=== PATIENT | female | born 1980 | race Caucasian/White ===

== ENCOUNTER 2017-04-22 00:59 | Inpatient (IN) | payer OTHER ==
[2017-04-22] VITALS (10 sets, daily range): BP systolic 104–140; BP diastolic 71–99; PULSE 83–106; RESP 6–28; O2SAT 98–100
[~2017-04-22] VITALS: Ht 160 cm; Wt 48.9 kg
[2017-04-22] MEDS ORDERED: Alum-Mag Hydrox-Simeth 30 mL Suspension PO PRN (02:20)
[2017-04-22] MEDS ORDERED: Senna-Docusate 8.6-50 mg Tablet PO PRN (02:20)
[2017-04-22] MEDS ORDERED: Polyethylene Glycol (PEG) 17 Gm Powder PO PRN (02:20)
[2017-04-22] MEDS ORDERED: HYDROmorphone PCA 0.2 mg/mL 30 mL Inj IV PRN (02:20)
--- NOTE | 2017-04-22 02:43 | PCM.HPMED ---
Subjective Date of Service Apr 22, 2017 Primary Provider: Admitting Physician: Jenifer Diaz DO Primary Care Physician: Dion Attending Physician: Jenifer Diaz DO Chief Complaint: abdominal pain History of Present Illness: Patient is a 36-year-old female with a medical history significant for hx polysubstance abuse, alcohol use disorder presents with significant abdominal pain. Per patient, abdominal pain started 2 days ago with associated nausea, vomiting , fevers, and chills. Pain is described as "bandlike" consistent, radiating to the right shoulder, sometimes to the left shoulders as well. Patient has little by mouth intake for the past 2 days. Though, patient admits to continued endorsing hard liquor until last night when abdominal pain became unbearable and thus activated EMS. Patient reports drinking up to a pint of vodka daily. Patient was recently discharge from methadone clinic last October, after 10 years of treatment and being clean. Patient then, decided to take up drinking thereafter. Patient denies any hematemesis or melena. Patient is currently not on any prescribed medications, no family histories of hypercholesterolemia. While at the ED at [facility], patient received 4 L of fluid in addition to pain medication. Patient was then transferred due to limited ICU beds. Labs at [place] CBC: WBC 15.9, Hgb 13.6, HCT 41.2, MCV 105, plt 178, neutrophil 88.5% CMP: Sodium 140, potassium 3.8, chloride 97, bicarbonate 4, P1 12, creatinine 0.9, glucose 70 Lipase 1014 Triglyceride 270 Ethyl alcohol 16 (normal 3-10) Serum acetone positive Urinary ketone 3+ Bilirubin 0.9, AST/FTY299/53, alkaline phosphatase 84, INR 1.1 Calcium 8.3, albumin 3.9 Magnesium 1.6 Troponin I less than 0.05 Urinary test negative Urine drug screen tested positive for cannabinoid only Initial ABG pH 7.12, PCO2 12.6, PaO2 117, estimated bicarbonate 4.1 Review of Systems: A comprehensive review of systems was conducted with the patient and found to be negative except as above in the History of Present Illness. 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 PERRLA, EOMI, Anicteric sclerae, moist conjunctivae. Neck: No JVD, No bruits. No lymphadenopathy or thyromegaly. Cardiovascular: Tachycardic, Regular rhythm with no murmurs, rubs, or gallops appreciated Pulmonary: b/l air sound with no crackles, wheezes, or rhonchi. no use of accessory muscles. Abdomen: +Bowel sound, Soft, tender around the epigastric, no rebound tenderness , no signs of retroperitoneal bleeding Extremities: No clubbing or cyanosis, no lymphedema, no b/l lower leg edema Skin: Normal temperature, turgor, and texture; no rash. No visualized skin ulcer. Neurological: CN II-VII grossly intact, moving equally on all 4 extremities Psychiatric: Normal mood and affect. AOx3 Lymph: no cervical or supraclavicular lymphadenopathy MSK: no joint erythema / edema, normal ROM Lab and Diagnostics X-Rays, CTs and MRIs Abdominal CT impression at [facility] 04/21/2017 1. Severe hepatics steatosis 2. Small hiatal hernia 3. Thickening of the entire colon probably due to decompression. Colitis is less likely. Chest x-ray impression at [facility] 04/21/2017 1. No acute changes 2. 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 Acute pancreatitis, present on admission, active - has classic presentation abdominal pain with lipase in the thousand - likely secondary to heavy EtOH abuse. BISAP score =1, low risk mortality. - "Pancreas rest", NPO for now. - TIRE CENTER MANAGER hydromorphone, antinausea medication when necessary - Cont NS 150cc/hr. Titrated to urine output greater than 0.5 mL/kg/hr. - Consult GI Dr. Edwards, please call to confirm if patient needs to be evaluated. EtOH intoxication, present on admission, active - Drinks about 1L every 2 days - Last drink, late evening 04/21/2017 - Alcohol withdraw protocol - Valium 5-10mg Q5-10min with CIWA score >10 - Supplement IV thiamine, start folate and vitamin B12 when patient can tolerate PO - Consult case management Anion gap metabolic acidosis, present on admission, active - Likely due to a combination of discontinuing alcohol ingestion and lactic acidosis - No secondary acid base disorder given Delta/delta =1 - Continue to monitor, hydrate as above Leukocytosis, present on admission, active - Likely reactive - Low threshold to start antibiotics for likely aspiration pneumonia - Monitor Transaminitis, present on admission, active - AST/ALT pattern classic for hepatotoxicity due to EtOH - Confirmatory, significant steatosis shown on CT abdomen - Order HIV and hepatitis panel to rule out other causes Dyspepsia, present on admission, active - Small hiatal hernia demonstrated on CT abdomen - Famotidine 20 mg twice a day Hypomagnesemia, present on admission, active - Replenish per protocol DVT prophylaxis: Lovenox CODE STATUS full code Patient Status: Patient is admitted under inpatient status with expected length of stay GREATER than 2 midnights due to severity of presenting symptoms, risk of adverse event, and complexity of treatment plan. GI Prophylaxis: H2 salena VTE Prophylaxis: Sub-Q Enoxaparin Resuscitation Status: CPR: Attempt Resuscitation Attending Statement The patient was seen and examined together with house staff on 04/22/2017 and I agree with the history, exam and plan as outlined in the note above. Frederick Tracey DO Apr 22, 2017 02:43 Jenifer Diaz DO Apr 22, 2017 04:36
[2017-04-22 02:48] LABS: BASOPHILS % (AUTO) 0 % (0-3); EOSINOPHILS % (AUTO) 0 % (0-5); MONOCYTES % (AUTO) 8.8 % (4-12); Mean Corpuscular Hemoglobin 34.5 pg (27.0-35.0); NEUTROPHILS % (AUTO) 60.9 % (40-74); Platelet Count 94 bil/L (150-400)
[2017-04-22] MEDS: Ondansetron 2 mg/mL 2 mL Inj IVPUSH PRN (03:02)
[2017-04-22] MEDS: 0.9% Sodium Chloride 1,000 ML IV SCH ×4 (03:03→23:39)
--- NOTE | 2017-04-22 03:21 | ABG ---
DateTimeAnalyzed 03:12:53 -_ pH ____7.392 - 7.350 7.450 pCO2 ___23.0__ -mmHg 35.0 45.0 pO2 ___96.0__ -mmHg 69.0 116 HCO3- ___14.0__ -mmol/L 22.0 26.0 ABE ___-9.9__ -mmol/L tHb ___11.0__ -g/dL O2Hb ___96.5__ -% COHb ____1.2__ -% 1.5 MetHb ____0.6__ -% sO2 ___98.3__ -% FIO2 ___21.0__ -% Drawn By blf - Date/Time Notified____ 03:20:00 -_ Liter_Flow ___30.00_ -L/min Oxygen Device 1 _ROOM AIR - Notified By blf - Notified Whom ___DR. SPANN - K+ ____3.9__ -mmol/L tO2 ___15.0__ -Vol% Robbie test _Positive -
[2017-04-22 03:23] LABS: Magnesium 1.1 mg/dL (1.6-2.6)
[2017-04-22] MEDS ORDERED: Mag Sulf 4 Gm/100 mL IV Premix (Mag < 1.6 & Creat < 2) IV ONE (03:50)
--- NOTE | 2017-04-22 05:59 | NUR ---
Admit / pain Patient admitted to room 2016 just before 0200, arrived as a transfer from [facility]. Patient oriented to room and call light. Denies having any home medications. Belongings waiver signed. Plan of care for the night discussed with the patient. On admit patient is complaining of abdominal pain, rating it as 8/10, describing it as burning, making her feel short of breath, and radiating to her back. Patient describes pain as increasing with light palpation. MD aware of quantity, quality, and location of pain. ROUGE SIFTER ordered and initiated, patient able to sleep after initial bolus dose is administered.
--- NOTE | 2017-04-22 07:59 | PCM.CHPMED ---
Subjective Date of Service: Apr 22, 2017 Provider requesting consult: Frederick Tracey DO Primary Physician: Admitting Physician: Miah Fishman MD Primary Care Physician: Nopcp Attending Physician: Miah Fishman MD Admit Status: Direct Admit ([facility]) Chief Complaint: Chief Complaint: abdominal pain History of Present Illness: GASTROENTEROLOGY CONSULTATION Patient is a 36 yo female with history of polysubstance abuse with 10 years of methadone treatment, 3 sections and a laparotomy. She had sudden onset abdominal pain that has worsened over the last 2 days until it got to the point that she couldn't walk it hurt so bad. She describes the pain as sharp at times and a major pressure in her epigastric area. Pain radiates to back. It is currently rated at 8/10, 10/10 at worst. She has had some nausea and vomitting but no hematemesis or melena. She has had some fever and chills. She is constipated without diarrhea. She does not take medications at home. She has been drinking"not much" recently, less than a pint of vodka daily. Review of Systems: A comprehensive review of systems was conducted with the patient and found to be negative except as above in the History of Present Illness. PMH Past Medical History Polysubstance abuse currently only alcohol and marijuana 10 year history of methadone use completed in October 2016 Urinary calculi 2 History of macrocytic anemia Surgical History section 3 Tonsillectomy Laparotomy Allergies: Coded Allergies: amoxicillin (Verified Allergy, Unknown, 04/22/17) Hives Family History Family History Father with colon cancer, of myocardial infarction No family history of inflammatory bowel disease or celiac disease and first or second-degree relatives Social History Hx Alcohol Use: YesAlcoholic Drinks Per Day: 'half pint a day'Hx Substance Use : Yes Smoking Status: Current Every Day Smoker Living Arrangement: with Family Exam Vital Signs Vital Sign - Last Date Time Temp Pulse Resp B/P Pulse Ox O2 Delivery O2 Flow Rate FiO2 04/22/17 06:15 106 04/22/17 02:04 37.3 28 140/86 100 Room Air Intake and Output 04/21/17 04/21/17 04/22/17 Cumulative From/Thru 15:00 23:00 07:00 04/22/17 02:32 - 04/22/17 06:17 Intake Total 429 ml 429 ml Balance 429 ml 429 ml Intake IV Total 429 ml 429 ml General: Alert, Oriented X3, Cooperative, No Acute Distress Head: Normal Mouth: Mucous Membr Moist/Miranda Neck: Supple Chest & Lungs: Auscultation (Normal), Other (Normal air movement) Cardiovascular: Regular Rate/Rhythm, No Murmurs/Rubs/Gallops Abdomen: Tender (epigastric), Non-distended, No masses, No hepatosplenomegaly, Normoactive bowel tones Neurological: Grossly Neurologically Intact Lab and Diagnostics Labs Lipase 1014 at [facility], decreased to 224 on arrival. Lactic acid trended down to 0.9 this morning. Hemoglobin 11.1, hematocrit 33.8, MCV 105.0, platelets 94 Result Diagram: 04/22/1723904/22/17239 Assessment & Plan Assessment 36-year-old female with past medical history of polysubstance abuse and recent alcohol use presents with pancreatitis. She has elevated lipase; initially in the thousands now downtrending with cessation of alcohol use, administration of IV fluids, and nothing by mouth status. This is most likely a case of alcoholic pancreatitis however other causes should be considered including autoimmune, or gallstone pancreatitis. Patient nontender in her right upper quadrant with a non-thickened gallbladder and no evidence of stones or sludge on ultrasound making gallstone pancreatitis less likely. Patient is stable, though her pain is significant she is continuing to improve. Due to her daily alcohol consumption erosive esophagitis or gastric ulcers should be considered if pain persists once pancreatitis has resolved. Recommendations: 1. Intravenous fluids, nothing by mouth status 2. Abdominal ultrasound 3. Evaluate for autoimmune pancreatitis including JOSE L and IgG4 Thank you for this interesting consult and we will continue to follow while patient remains in the hospital. Problems: Pain Evaluation: Adequate Pain Control GI Prophylaxis: H2 salena VTE Prophylaxis: Sub-Q Enoxaparin Resuscitation Status: CPR: Attempt Resuscitation Attending Statement agree with assessment and plan above. 36 year old female admitted with acute pancreatitis by definition most likely due to etoh ingestion. will r/o other causes. agree with plan above. copies to: Nima Edwards MD, Erika R DO Apr 22, 2017 07:59 Nima Edwards MD Apr 22, 2017 21:22
[2017-04-22] MEDS ORDERED: Famotidine Inj 20 MG in IV Premix 1 EACH IV SCH (08:30)
[2017-04-22] MEDS: Multivit-Miner-Folic Acid-Iron Tablet PO SCH (08:30)
[2017-04-22] MEDS: Thiamine Inj 200 MG in Dextrose 5% 50 ML IV SCH (09:14)
--- NOTE | 2017-04-22 13:46 | NUR ---
NUTRITION ASSESSMENT: ASSESS: Pt is a 36yo F admitted for pancreatitis. Pt has history of etoh use. She is currently on a CL diet. Pt reported that she is a nibbler at home and doesn't eat large meals. She reported that she has coffee for breakfast, will snack throughout the day on crackers and then will eat soup or a microwavable meal for dinner. She reported that she feels weak and that she has noticed some wt loss recently of ~5-10lbs over the past month (~6.5% wt loss x1 month = severe wt loss). PMHX: polysubstance abuse, etoh LABS: Reviewed. CO2 12, digital computer systems analyst .51, lactic acid 2.2, Ca 8.2, Mg 1.1, alb 3.2, lipase 224 MEDS: Reviewed. Thiamine, MVI, zofran GI: 0 BM- pt reports constipation SKIN: Arvin 14, no major issues CURRENT WTS: 48.3kg, BMI 18.9kg/m2, reported ~6.5% wt loss x1 month, IBW 52.3kg DIET PEARL DIGGER: Breakfast: coffee snacks on crackers during day Dinner: microwaveable meals DIET: CL, no PO yet EST. NEEDS: pancreatitis, malnutrition Kcals: 1210-1450kcal/day (25-30kcal/kg) Pro: 60-75g/day (1.2-1.5g/kg) NUTRITION DIAGNOSIS: 1.) Severe pro/kcal malnutrition related to alcoholism as evidence by 6.5% wt loss x1 month and PO intake of less than 75% of estimated needs for greater than 1 month, visible muscle/fat loss. NUTRITION INTERVENTION: 1.) Discussed with pt about how her current diet is not adequate to meet her kcal/pro needs. Discussed how drinking can make you feel full and leads to not eating enough food. Discussed avoiding high fat and high sugar foods and eating smaller more frequent meals because her body is not use to her eating large amounts at one time. Pt verbalized understanding of this and she reported that she has noticed wt loss and muscle loss and she does not want to lose any more wt or muscle. 2.) Provided handout on pancreatitis diet (low fat) and general healthy diet 3.) Recommend advance diet when medically appropriate. Pt is currently on CL diet. Pt agreed to try Ensure CL while on CL diet and she is willing to drink Ensure once diet is advanced past CL. MONITOR / EVAL: PO, diet advc, wt, gi, labs, POC, nutrition status. Will continue to monitor per high nutrition risk guidelines
--- NOTE | 2017-04-22 15:20 | DRSVH ---
PROCEDURE: US ABDOMEN INDICATIONS: Epigastric pain, elevated lipase TECHNIQUE: Real-time scanning was performed of the abdominal and retroperitoneal organs, with image documentatio n. COMPARISON: None. FINDINGS: Liver length: 20.09 cm Gallbladder Wall Thickness: 1.50 mm CHD: 3.60 mm CBD: 3.90 mm Spleen length: 10.13 cm Right kidney length: 10.70 cm Left kidney length: 10.81 cm Aorta(Proximal): 1.96 cm Aorta(Mid): 1.87 cm Aorta(Distal): 1.71 cm Liver: Liver is diffusely increased in echogenicity. No focal hepatic abnormalities identified. No rmal hepatic size. Gallbladder: No gallstones identified. Normal gallbladder wall. No pericholecystic fluid. Negativ e sonographic Hong sign. Biliary ducts: Intrahepatic bile ducts are non-dilated. Extrahepatic bile duct caliber is normal. Normal is 6-7 mm or less in diameter, or 10 mm or less post-cholecystectomy. Pancreas: Visualized portions of the pancreas are sonographically normal. Spleen: Spleen is normal in size and homogeneous in echotexture. Kidneys: Kidneys are normal in size and echotexture. No hydronephrosis or nephrolithiasis. No moiz d masses. Aorta: Visualized aorta is normal in caliber at less than 3 cm. Iliacs: Proximal common iliac arteries are normal in caliber at less than 2.5 cm. IVC: Intrahepatic inferior vena cava is patent. Miscellaneous: No free abdominal fluid. IMPRESSION: Increased hepatic echogenicity noted likely related to fatty infiltration of the liver b ut other sources of hepatocellular disease cannot be excluded. Recommend clinical correlation. Dictated by: Kong MAC Interpreted: Lety Marino MD on 04/22/2017 at 10:36 Approved by: Lety Marino M.D. on 04/22/2017 at 15:18
--- NOTE | 2017-04-22 16:07 | NUR ---
CIWA Pt has been sleeping most of the day. CIWA at 9. Alert and oriented x3. Clear diet ordered, giving pt heart burn. NS at 150cc/hr and Dilaudid METAL MILLING MACHINE OPERATOR with standard settings. Up to BSC with SBA, shaky on feet. Strict I&O's. Down graded to PCC at 0900
[2017-04-22] MEDS: oxyCODONE-Acetamin 5-325 mg Tablet PO PRN ×2 (18:43→23:39)
--- NOTE | 2017-04-22 19:16 | PCM.PNMED ---
Subjective Date of Service Apr 22, 2017 Subjective Overnight Events. Patient having significant pain as a new transfer from [place] , TEACHER PRIVATE ordered and initiated, allowing patient to sleep after inital bolus. She is resting in bed comfortably and in no acute distress. Patient reports her pain is 8/10, which is more tolerable. Still feels as if she is short of breath and having pain in lower chest going into the back. She also has a headache. She is not currently nauseated or vomiting. She feels as if she is able to tolerate clear liquids today. Exam Vital Signs Vital Sign - Last Date Time Temp Pulse Resp B/P Pulse Ox O2 Delivery O2 Flow Rate FiO2 04/22/17 18:27 87 04/22/17 16:48 37.1 18 117/75 98 Room Air Intake and Output 04/21/17 04/21/17 04/22/17 Cumulative From/Thru 15:00 23:00 07:00 04/22/17 02:32 - 04/22/17 06:17 Intake Total 429 ml 429 ml Balance 429 ml 429 ml Intake IV Total 429 ml 429 ml Exam General: No acute distress, malnourished, appropriately interactive HEENT: Normocephalic, Pupils equal, round, Anicteric sclerae, Cardiovascular: Regular rate and rhythm with no murmurs, rubs, or gallops appreciated Pulmonary: Clear to auscultation bilaterally with no crackles, wheezes, or rhonchi. Normal respiratory effort with no use of accessory muscles. Abdomen: Bowel tones present. Soft, Tender in all quadrants except RUQ, nondistended. No hepatosplenomegaly or masses appreciated. Extremities: No clubbing, cyanosis, edema Neurological: Cranial nerves grossly intact. Psychiatric: Normal mood and affect. Alert and oriented to person, place, and time Lab and Diagnostics DateTimeAnalyzed 03:12:53 -_ pH ____7.392 - 7.350 7.450 pCO2 ___23.0__ -mmHg 35.0 45.0 pO2 ___96.0__ -mmHg 69.0 116 HCO3- ___14.0__ -mmol/L 22.0 26.0 ABE ___-9.9__ -mmol/L tHb ___11.0__ -g/dL O2Hb ___96.5__ -% COHb ____1.2__ -% 1.5 MetHb ____0.6__ -% sO2 ___98.3__ -% FIO2 ___21.0__ -% Drawn By blf - Date/Time Notified____ 03:20:00 -_ Liter_Flow ___30.00_ -L/min Oxygen Device 1 _ROOM AIR - Notified By blf - Notified Whom ___. ZANA - K+ ____3.9__ -mmol/L tO2 ___15.0__ -Vol% Robbie test _Positive - CBC Test 04/22/17 02:40 White Blood Count 5.1th/mm3 (3.8-10.1) Red Blood Count 3.22mil/mm3 (3.90-5.20) Hemoglobin 11.1g/dL (12.0-15.6) Hematocrit 33.8% (35.0-46.0) Mean Corpuscular Volume 105.0fL (81-100) Mean Corpuscular Hemoglobin 34.5pg (27.0-35.0) Mean Corpuscular Hemoglobin Concent 32.8% (32.0-37.0) Red Cell Distribution Width 13.7% (12.3-15.4) Platelet Count 94bil/L (150-400) Neutrophils (%) (Auto) 60.9% (40-74) Lymphocytes (%) (Auto) 30.1% (14-46) Monocytes (%) (Auto) 8.8% (4-12) Eosinophils (%) (Auto) 0% (0-5) Basophils (%) (Auto) 0% (0-3) CMP Test 04/22/17 02:40 04/22/17 08:08 04/22/17 08:38 Sodium Level 135mEq/L Potassium Level 4.3mEq/L Chloride Level 100mEq/L Carbon Dioxide Level 12mmol/L Blood Urea Nitrogen 8mg/dL Creatinine 0.51mg/dL Estimat Glomerular Filtration Rate 197mL/min Glucose Level 91mg/dL Calcium Level 8.2mg/dL Total Bilirubin 0.9mg/dL Aspartate Amino Transf (AST/SGOT) 38U/L Alanine Aminotransferase (ALT/SGPT) 24U/L Alkaline Phosphatase 52U/L Total Protein 5.4g/dL Albumin 3.2g/dL Prealbumin 13mg/dL Lipase 224U/L Magnesium Level 2.8mg/dL Lactic Acid Level 0.9mmol/L Result Diagram: 04/22/17 02404/22/17 024 X-Rays, CTs and MRIs Abdominal CT impression at [place] [facility] 04/21/2017 1. Severe hepatics steatosis 2. Small hiatal hernia 3. Thickening of the entire colon probably due to decompression. Colitis is less likely. Chest x-ray impression at [place] [facility] 04/21/2017 1. No acute changes 2. 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 Acute pancreatitis, present on admission, active - has classic presentation abdominal pain with lipase in the thousand - likely secondary to heavy EtOH abuse. BISAP score =1, low risk mortality. - Advanced to clear liquids today. Patient having heartburn with it, so will wait to advance to full liquids till tomorrow. - Patient not using TEACHER PRIVATE hydromorphone most of the day, transitioned to oxycodone PO. - Cont NS 150cc/hr. - Appreciate GI consult. - Lipase tomorrow AM EtOH intoxication, present on admission, active - Drinks about 1L every 2 days - Last drink, late evening 04/21/2017 - Transitioned IV diltiazem to Librium PO TID PRN. - Supplement IV thiamine, start folate and vitamin B12 when patient can tolerate PO - Consult case management Anion gap metabolic acidosis, present on admission, active - Likely due to a combination of discontinuing alcohol ingestion and lactic acidosis - No secondary acid base disorder given Delta/delta =1 - Continue to monitor, hydrate as above - Lactic acidosis trend to normal - BMP tomorrow AM Severe pro/kcal malnutrition secondary to alcoholism, active - Appreciate nutrition consult. Will advance diet to full liquids when patient able to tolerate clear liquids. Transaminitis, present on admission, active - AST/ALT pattern classic for hepatotoxicity due to EtOH - Confirmatory, significant steatosis shown on CT abdomen - Order HIV and hepatitis panel to rule out other causes Dyspepsia, present on admission, active - Small hiatal hernia demonstrated on CT abdomen - Famotidine 20 mg twice a day Hypomagnesemia, present on admission, resolved - Replenish per protocol DVT prophylaxis: Lovenox Pain Evaluation: Adequate Pain Control GI Prophylaxis: H2 salena VTE Prophylaxis: Sub-Q Enoxaparin Resuscitation Status: CPR: Attempt Resuscitation Attending Statement The patient was seen and examined together with Dr. Vickers on 04/23/2017 and I agree with the history, exam and plan as outlined in the note above. . Gama Vickers DO Apr 22, 2017 19:16 Miah Fishman MD Apr 23, 2017 18:08
[2017-04-23 03:09] LABS: Hepatitis A Antibody IgM Negative (Negative); Hepatitis B Core Antibody IgM Negative (Negative)
[2017-04-23 03:20] LABS: Mean Corpuscular Hemoglobin 34.5 pg (27.0-35.0); Mean Corpuscular Volume 104.9 fL (81-100)
[2017-04-23 03:39] LABS: Lipase 95 U/L (13-60); Magnesium 1.6 mg/dL (1.6-2.6)
[2017-04-23 03:41] VITALS: BP 123/86; PULSE 84; RESP 17; O2SAT 99
[2017-04-23] MEDS ORDERED: Potassium Chloride 20 mEq SR Tablet PO ONE (04:20)
[2017-04-23] MEDS ORDERED: Magnesium Sulf 2 Gm/50mL Water 2 GM in IV Premix 1 EACH IV ONE (04:20)
[2017-04-23] MEDS: oxyCODONE-Acetamin 5-325 mg Tablet PO PRN ×5 (04:56→21:36)
[2017-04-23] MEDS: 0.9% Sodium Chloride 1,000 ML IV SCH ×3 (04:57→18:34)
--- NOTE | 2017-04-23 06:30 | NUR ---
CIWA / Labs CIWA score= 4. Pt is pleasant and cooperative with care. K+ =2.8 and Mag =1.6. Repletion initiated. F/U labs ordered. VSS. No overt complications noted.
--- NOTE | 2017-04-23 08:01 | PCM.PNSURG ---
Subjective Date of Service: Apr 23, 2017 Date of Service: Apr 23, 2017 Subjective: abdominal pain 8/10 this am. pt tolerating clear liquids but complains of heartburn. on pepcid. would recommend d/c pepcid and start protonix 40mg qday. Postop General: No Complaints Objective Vital Sign- Last 8 Hours Date Time Temp Pulse Resp B/P Pulse Ox O2 Delivery O2 Flow Rate FiO2 04/23/17 03:41 36.8 84 17 123/86 99 Room Air Intake and Output- Last 8 Hour 04/23/17 Cumulative From/Thru 07:00 04/22/17 02:32 - 04/23/17 06:00 Intake Total 1812 ml 2741 ml Output Total 1500 ml 1500 ml Balance 312 ml 1241 ml Intake Oral 200 ml 200 ml IV Total 1612 ml 2541 ml Output Urine Total 1500 ml 1500 ml # Bowel Movements 0 0 General: Oriented X3 Neck: Supple Lungs: Clear to Auscultation Heart: Exam Unremarkable Abdomen: Benign, Soft, Appropriately tender, Non-distended, Normoactive bowel tones Extremities: Distal Pulses Palpable Result Diagram: 04/23/17 0245 04/23/17 0245 Assessment & Plan Impression 36-year-old female with past medical history of polysubstance abuse and recent alcohol use presents with epigastric pain and lipase 1014 at osh most likely due to acute etoh pancreatitis.. She has elevated lipase; initially in the thousands now downtrending with cessation of alcohol use, administration of IV fluids, and nothing by mouth status. however other causes should be considered including autoimmune, or gallstone pancreatitis. Patient nontender in her right upper quadrant with a non-thickened gallbladder and no evidence of stones or sludge on ultrasound making gallstone pancreatitis less likely. Patient is stable, though her pain is significant she is continuing to improve. abdominal u/s- Increased hepatic echogenicity noted likely related to fatty infiltration of the liver but other sources of hepatocellular disease cannot be excluded Recommendations: 1. cont clear liquids today. If tomorrow pt doing well from clinical standpoint, then advance to soft low residue diet 2. d/c pepcid 3. await JOSE L (neg) and IgG4 4. start protonix 40mg qday will cont to follow Problems: VTE Prophylaxis: Sub-Q Enoxaparin Resuscitation Status: CPR: Attempt Resuscitation Nima Edwards MD Apr 23, 2017 08:01
[2017-04-23 08:40] VITALS: BP 123/95; PULSE 91; RESP 20; O2SAT 99
[2017-04-23] MEDS: Multivit-Miner-Folic Acid-Iron Tablet PO SCH (08:44)
[2017-04-23] MEDS: chlordiazePOXIDE 25 mg Capsule PO PRN ×3 (08:44→19:43)
[2017-04-23] MEDS: Pantoprazole 40 mg ER24 Tablet PO SCH (09:51)
[2017-04-23] MEDS: Thiamine Inj 200 MG in Dextrose 5% 50 ML IV SCH (09:51)
[2017-04-23 10:37] LABS: Magnesium 1.9 mg/dL (1.6-2.6)
[2017-04-23 12:30] VITALS: BP 103/73; PULSE 83; PULSE 84; RESP 18; O2SAT 99
[2017-04-23] MEDS: LORazepam 0.5 mg Tablet PO PRN ×2 (14:04→19:38)
[2017-04-23] MEDS ORDERED: KCl 40 mEq/500 mL D5W(K 3 - 3.7 & Creat < 2) IV ONE (15:40)
--- NOTE | 2017-04-23 15:57 | NUR ---
Transfer to [facility] Room 1009. Report given to Narda Estrada RN. Pt alert and oriented. Mother at bedside all belongings with pt.
--- NOTE | 2017-04-23 15:58 | NUR ---
K+/CIWA K+ after repletion was 3.3. M.D. aware. Initiated protocol again and ordered 40meq IV K+. Pharmacy called and made aware she will be transferred to [facility] and they will send it there. CIWA's have been <10 today. She has PRN Librium and Ativan if needed. Pt reported dry, itchy, red eyes this morning. Artificial tears have been ordered for her.
[2017-04-23 16:29] VITALS: BP 116/81; PULSE 79; RESP 18; O2SAT 100
[2017-04-23] MEDS: Ondansetron 2 mg/mL 2 mL Inj IVPUSH PRN (17:28)
[2017-04-23 20:19] VITALS: BP 116/82; PULSE 77; RESP 16; O2SAT 98
--- NOTE | 2017-04-23 21:56 | PCM.PNMED ---
Subjective Date of Service Apr 23, 2017 Subjective Overnight Events: None Patient resting in bed in no acute distress. Patient reports not feeling well today as she is having 7/10 chest pain, shortness of breath and palpitations. similar to the previous days. She mentions she was having heart burn and unable to tolerate PO oxycodone as it felt difficult to swallow and vomited. She was later able to try crushed oxycodone mixed into Jello which she tolerated well. She also mentions of having red, dry, burning eyes and a scratchy throat and that her daughter is sick. She denies headache, dizziness, constipation, diarrhea. She is currently feeling too weak to ambulate. Exam Vital Signs Vital Sign - Last Date Time Temp Pulse Resp B/P Pulse Ox O2 Delivery O2 Flow Rate FiO2 04/23/17 20:19 36.9 77 16 116/82 98 Room Air Intake and Output 04/22/17 04/22/17 04/23/17 Cumulative From/Thru 15:00 23:00 07:00 04/22/17 02:32 - 04/23/17 06:00 Intake Total 500 ml 1812 ml 2741 ml Output Total 1500 ml 1500 ml Balance 500 ml 312 ml 1241 ml Intake Oral 200 ml 200 ml IV Total 500 ml 1612 ml 2541 ml Output Urine Total 1500 ml 1500 ml # Bowel Movements 0 0 Exam General: No acute distress, malnourished, appropriately interactive HEENT: Normocephalic, Pupils equal, round, Anicteric sclerae, Cardiovascular: Regular rate and rhythm with no murmurs, rubs, or gallops appreciated Pulmonary: Clear to auscultation bilaterally with no crackles, wheezes, or rhonchi. Normal respiratory effort with no use of accessory muscles. Abdomen: Bowel tones present. Soft, Tender in all quadrants except RUQ, nondistended. Extremities: No clubbing, cyanosis, edema Neurological: Cranial nerves grossly intact. Psychiatric: Normal mood and affect. Alert and oriented to person, place, and time Lab and Diagnostics Laboratory Tests 72 Hours Test 04/22/17 02:40 04/22/17 08:08 04/22/17 08:38 04/23/17 02:45 White Blood Count 5.1th/mm3 (3.8-10.1) 3.2th/mm3 (3.8-10.1) Red Blood Count 3.22mil/mm3 (3.90-5.20) 3.07mil/mm3 (3.90-5.20) Hemoglobin 11.1g/dL (12.0-15.6) 10.6g/dL (12.0-15.6) Hematocrit 33.8% (35.0-46.0) 32.2% (35.0-46.0) Mean Corpuscular Volume 105.0fL (81-100) 104.9fL (81-100) Mean Corpuscular Hemoglobin 34.5pg (27.0-35.0) 34.5pg (27.0-35.0) Mean Corpuscular Hemoglobin Concent 32.8% (32.0-37.0) 32.9% (32.0-37.0) Red Cell Distribution Width 13.7% (12.3-15.4) 13.1% (12.3-15.4) Platelet Count 94bil/L (150-400) 65bil/L (150-400) Neutrophils (%) (Auto) 60.9% (40-74) Lymphocytes (%) (Auto) 30.1% (14-46) Monocytes (%) (Auto) 8.8% (4-12) Eosinophils (%) (Auto) 0% (0-5) Basophils (%) (Auto) 0% (0-3) Sodium Level 135mEq/L (134-144) 138mEq/L (134-144) Potassium Level 4.3mEq/L (3.5-5.2) 2.8mEq/L (3.5-5.2) Chloride Level 100mEq/L (97-108) 98mEq/L (97-108) Carbon Dioxide Level 12mmol/L (18-29) 19mmol/L (18-29) Blood Urea Nitrogen 8mg/dL (6-20) 5mg/dL (6-20) Creatinine 0.51mg/dL (0.57-1.00) < 0.30mg/dL (0.57-1.00) Estimat Glomerular Filtration Rate 197mL/min (>59) 363mL/min (>59) Glucose Level 91mg/dL (60-99) 63mg/dL (60-99) Hemoglobin A1c 4.8% (4.8-5.6) Lactic Acid Level 2.2mmol/L (0.4-2.0) 0.9mmol/L (0.4-2.0) Calcium Level 8.2mg/dL (8.5-10.1) 8.3mg/dL (8.5-10.1) Magnesium Level 1.1mg/dL (1.6-2.6) 2.8mg/dL (1.6-2.6) 1.6mg/dL (1.6-2.6) Total Bilirubin 0.9mg/dL (0.0-1.2) Aspartate Amino Transf (AST/SGOT) 38U/L (0-50) Alanine Aminotransferase (ALT/SGPT) 24U/L (0-32) Alkaline Phosphatase 52U/L (25-150) Total Protein 5.4g/dL (6.4-8.4) Albumin 3.2g/dL (3.4-5.0) Prealbumin 13mg/dL (20-40) Lipase 224U/L (13-60) 95U/L (13-60) Anti-Nuclear Antibody Screen Negative (Negative) Hepatitis A IgM Antibody Negative (Negative) Hepatitis B Surface Antigen Negative (Negative) Hepatitis B Core IgM Antibody Negative (Negative) Hepatitis C Antibody <0.1s/co ratio (0.0-0.9) Hepatitis C Comment Comment (.) HIV (1&2) Ag and Ab, 4th Generation Non reactive (Non Reactive) Test 04/23/17 09:30 Potassium Level 3.3mEq/L (3.5-5.2) Magnesium Level 1.9mg/dL (1.6-2.6) Result Diagram: 04/23/17 0245 04/23/17 0930 X-Rays, CTs and MRIs Abdominal CT impression at [place] 04/21/2017 1. Severe hepatics steatosis 2. Small hiatal hernia 3. Thickening of the entire colon probably due to decompression. Colitis is less likely. Chest x-ray impression at [place] 04/21/2017 1. No acute changes 2. 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 Acute pancreatitis, present on admission, active - has classic presentation abdominal pain with lipase initially in the thousand - likely secondary to heavy EtOH abuse. BISAP score =1, low risk mortality. - Advanced to clear liquids 04/22/17. Patient having heartburn with it 04/23, so will wait to advance to full liquids till 04/24. - Patient transitioned to oxycodone PO. Had difficulty with swallowing pill, but is able to tolerate it crushed into jello. - Cont NS 150cc/hr. - Appreciate GI consult. - Lipase down to 95 EtOH intoxication, present on admission, active - Drinks about 1L every 2 days - Last drink, late evening 04/21/2017 - Librium PO TID PRN. - Added Ativan prn for anxiety - Supplement IV thiamine, started folate and vitamin B12 for 04/24/17 - Consulted case management Anion gap metabolic acidosis, present on admission, active - Likely due to a combination of discontinuing alcohol ingestion and lactic acidosis - No secondary acid base disorder given Delta/delta =1 - Continue to monitor, hydrate as above - Lactic acidosis trend to normal - BMP tomorrow AM Severe pro/kcal malnutrition secondary to alcoholism, active - Appreciate nutrition consult. Will advance diet to full liquids when patient able to tolerate clear liquids. - Contacted PT for help with ambulation Transaminitis, present on admission, active - AST/ALT pattern classic for hepatotoxicity due to EtOH - Confirmatory, significant steatosis shown on CT abdomen - Hepatitis B and C, HIV and JOSE L negative Dyspepsia, present on admission, active - Small hiatal hernia demonstrated on CT abdomen - Switched famotidine to protonix 40 mg PO daily per GI recommendation Hypomagnesemia, present on admission, resolved - Replenish per protocol Dry Eyes, active Patient mentions having red, burning dry eyes. Could be secondary viral conjunctivitis as patient's daughter is sick. - Given artificial tears - Will monitor progression of symptoms. DVT prophylaxis: Lovenox Disposition: Likely will be hear for 2-3 more days as she is only tolerating clear liquids. Needs to be able to advance her diet safely. Pain Evaluation: Adequate Pain Control GI Prophylaxis: Proton Pump Inhibitor VTE Prophylaxis: Sub-Q Enoxaparin Resuscitation Status: CPR: Attempt Resuscitation Attending Statement The patient was seen and examined together with Dr. Vickers on 04/23/2017 and I agree with the history, exam and plan as outlined in the note above. . Gama Vickers DO Apr 23, 2017 21:56 Miah Fishman MD Apr 25, 2017 07:44
[2017-04-24] VITALS (9 sets, daily range): BP systolic 118–127; BP diastolic 80–89; PULSE 72–83; RESP 16–18; O2SAT 99–100
[2017-04-24] MEDS: 0.9% Sodium Chloride 1,000 ML IV SCH ×4 (01:49→21:36)
[2017-04-24] MEDS: oxyCODONE-Acetamin 5-325 mg Tablet PO PRN ×4 (04:26→20:55)
[2017-04-24 05:41] LABS: Mean Corpuscular Hemoglobin 33.6 pg (27.0-35.0); Mean Corpuscular Volume 101.8 fL (81-100)
[2017-04-24] MEDS: chlordiazePOXIDE 25 mg Capsule PO PRN ×3 (06:05→18:35)
[2017-04-24] MEDS: LORazepam 0.5 mg Tablet PO PRN ×3 (06:05→21:51)
--- NOTE | 2017-04-24 06:23 | NUR ---
activity pts CIWA this shift have been 5 or less. she has still requested Ativan and Librium for anxiety and tremors. she has been given percocet for epigastric/abdominal pain which has been effective. pt pleasant and cooperative with care.
[2017-04-24] MEDS ORDERED: Pantoprazole 40 mg ER24 Tablet PO SCH (07:30)
[2017-04-24] MEDS: Multivit-Miner-Folic Acid-Iron Tablet PO SCH (08:56)
[2017-04-24] MEDS: Pantoprazole 40 mg ER24 Tablet PO SCH (08:57)
--- NOTE | 2017-04-24 09:13 | PCM.PNSURG ---
Subjective Date of Service: Apr 24, 2017 Date of Service: Apr 24, 2017 Visit Information: Reason for Visit Pancreatitis Date of Admission: Apr 22, 2017 at 01:53 Hospital Day # 3 Subjective: Patient reports doing better this morning. She still rates her pain 7/10. She has been tolerating clear liquids, she has no or very minimal nausea. She continues to have epigastric and midline chest pain that radiates to the back. She does state that this is improved with the addition of Protonix. She did have some night sweats through the night but no fever or chills. She is having constipation and her last bowel movement was about 1 week ago. Postop General: Shortness of Breath (with ambulation) Gastrointestinal: Tolerating Oral Feedings, No N/V Pain Management: PO (Percocet) Postop Activity: Ambulating Independently (to bathroom) Objective Vital Sign- Last 8 Hours Date Time Temp Pulse Resp B/P Pulse Ox O2 Delivery O2 Flow Rate FiO2 04/24/17 08:55 36.4 83 16 122/89 100 Room Air 04/24/17 04:37 36.4 80 16 127/89 99 Room Air 04/24/17 03:23 81 Intake and Output- Last 8 Hour 04/24/17 Cumulative From/Thru 07:00 04/22/17 02:32 - 04/24/17 06:12 Intake Total 2073 ml 8116 ml Output Total 1300 ml 8300 ml Balance 773 ml -184 ml Intake Oral 440 ml 2500 ml IV Total 1633 ml 5616 ml Output Urine Total 1300 ml 8300 ml # Bowel Movements 0 0 General: Alert, Oriented X3, Cooperative, No Acute Distress Neck: Supple Lungs: Clear to Auscultation, Normal Air Movement Heart: Regular Rate/Rhythm, No Murmurs/Rubs/Gallops Abdomen: Soft, Appropriately tender, Non-distended, Normoactive bowel tones Extremities: Distal Pulses Palpable Neuro: Grossly Neurologically Intact Result Diagram: 04/24/17 0510 04/24/1710 Lab & Micro Results: H&H stable at 11.2/33.9, white blood cells slowly coming down to 3.1. Lipase yesterday was measured to have come down to 95. Diagnostics: PROCEDURE: US ABDOMEN IMPRESSION: Increased hepatic echogenicity noted likely related to fatty infiltration of the liver but other sources of hepatocellular disease cannot be excluded. Recommend clinical correlation. Dictated by: Kong MAC Interpreted: Lety Marino MD on 04/22/2017 at 10: 36 Assessment & Plan Impression 36-year-old female with past medical history of polysubstance abuse and recent alcohol use presents with epigastric pain and lipase 1014 at [facility] most likely due to acute etoh pancreatitis.. She has elevated lipase; initially in the thousands now downtrending with cessation of alcohol use, administration of IV fluids, and nothing by mouth status. however other causes should be considered including autoimmune, or gallstone pancreatitis. Patient nontender in her right upper quadrant with a non-thickened gallbladder and no evidence of stones or sludge on ultrasound making gallstone pancreatitis less likely. Patient is stable, though her pain is significant she is continuing to improve. abdominal u/s- Increased hepatic echogenicity noted likely related to fatty infiltration of the liver but other sources of hepatocellular disease cannot be excluded Recommendations: 1. Advance to soft low residue diet today. 2. Await JOSE L (neg) and IgG4 for evidence of autoimmune pancreatitis 3. Continue protonix 40mg qday 4. If patient tolerates soft low residue diet, then ok to d/c home from [facility] GI will cont to follow Problems: Pain Management: Per hospitalist team VTE Prophylaxis: Sub-Q Enoxaparin Resuscitation Status: CPR: Attempt Resuscitation copies to: Nima Edwards MD, Erika R DO Apr 24, 2017 09:13 Nima Edwards MD Apr 24, 2017 13:29 Pain Management: Per hospitalist team VTE Prophylaxis: Sub-Q Enoxaparin Resuscitation Status: CPR: Attempt Resuscitation copies to: Nima Edwards MD, Erika R DO Apr 24, 2017 09:13
[2017-04-24 12:10] LABS: INR 1.05 ratio
--- NOTE | 2017-04-24 14:44 | NUR ---
PO intake pt is not having any nausea, but still has not much interest in eating, she has taken some chocolate pudding and Jello without problems and taking fluids well.
[2017-04-24] MEDS ORDERED: 0.9% NaCl + KCl 20 mEq/L 1,000 ML IV SCH (22:35)
--- NOTE | 2017-04-24 22:38 | PCM.PNMED ---
Subjective Date of Service Apr 24, 2017 Subjective The patient is still not feeling well. She continues to complain of abdominal pain and fatigue. Exam Vital Signs Vital Sign - Last Date Time Temp Pulse Resp B/P Pulse Ox O2 Delivery O2 Flow Rate FiO2 04/24/17 18:20 36.8 83 16 122/89 100 Room Air Intake and Output 04/23/17 04/23/17 04/24/17 Cumulative From/Thru 15:00 23:00 07:00 04/22/17 02:32 - 04/24/17 06:12 Intake Total 3302 ml 2073 ml 8116 ml Output Total 5500 ml 1300 ml 8300 ml Balance -2198 ml 773 ml -184 ml Intake Oral 1860 ml 440 ml 2500 ml IV Total 1442 ml 1633 ml 5616 ml Output Urine Total 5500 ml 1300 ml 8300 ml # Bowel Movements 0 0 0 Exam General: Patient is lying supine in no apparent distress. She appears comfortable. HEENT: Head is atraumatic and normocephalic. Eyes: Pupils are equally round and reactive to light and accommodation. Extraocular muscles are intact. Sclera are white, anicteric. Subconjunctival mucosa is pink. Ears and nose are unremarkable. Oropharynx: There is no mucosal lesions, there is no thrush, there is no pharyngitis. Neck: Is supple, there are no nodes, or masses or tenderness. Chest: Is clear to auscultation and percussion. There are no rales, rhonchi, wheezes or rubs. Heart: Rate, rhythm is regular. There is no murmur, rub or gallop. Abdomen: Good bowel sounds are present. Abdomen is soft, with nonspecific tenderness, no organomegaly or masses were appreciated. Extremities: Are symmetrical and well perfused. There is no edema, there is no cellulitis, no rash. Neurologic: There are no focal neurological deficits. Cranial nerves II through XII are intact. There are no sensory or motor deficits. Psychiatric: Patients mood is calm and shows no sign of agitation. Genital: Deferred Rectal: Deferred Lab and Diagnostics Result Diagram: 04/24/17 0510 04/24/17 0510 Microbiology Nasopharyngeal PCR screen was negative and MRSA nasal screen is pending X-Rays, CTs and MRIs Abdominal CT impression at [facility] 04/21/2017 1. Severe hepatics steatosis 2. Small hiatal hernia 3. Thickening of the entire colon probably due to decompression. Colitis is less likely. Chest x-ray impression at [place] 04/21/2017 1. No acute changes 2. 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 Acute pancreatitis, present on admission, active - The patient has classic presentation abdominal pain with lipase initially in the thousand - This is likely secondary to heavy EtOH abuse. BISAP score =1, low risk mortality. - Advanced to clear liquids 04/22/17. Patient having heartburn with it 04/23, so will wait to advance to full liquids till 04/24. - Patient transitioned to oxycodone PO. Had difficulty with swallowing pill, but is able to tolerate it crushed into jello. - Continue IV fluids but will change NS 150cc/hr. to 0.9 normal saline with 20 mEq of KCl at 100 mL an hour due to borderline low potassium. - Appreciate GI consult and follow-up. - Lipase down to 95 EtOH intoxication, present on admission, active - Drinks about 1L every 2 days - Last drink, late evening 04/21/2017 - Librium PO TID PRN. - Added Ativan prn for anxiety - Supplement IV thiamine, started folate and vitamin B12 for 04/24/17 - Consulted case management Anion gap metabolic acidosis, present on admission, active - Likely due to a combination of discontinuing alcohol ingestion and lactic acidosis - No secondary acid base disorder given Delta/delta =1 - Continue to monitor, hydrate as above - Lactic acidosis trended to normal - BMP tomorrow AM Severe pro/kcal malnutrition secondary to alcoholism, active - Appreciate nutrition consult. Will advance diet to full liquids when patient able to tolerate clear liquids. - Contacted PT for help with ambulation Transaminitis, present on admission, active - AST/ALT pattern classic for hepatotoxicity due to EtOH - Confirmatory, significant steatosis shown on CT abdomen - Hepatitis B and C, HIV and JOSE L negative Dyspepsia, present on admission, active - Small hiatal hernia demonstrated on CT abdomen - Switched famotidine to protonix 40 mg PO daily per GI recommendation Hypomagnesemia, present on admission, resolved - Replenish per protocol Dry Eyes, active Patient mentions having red, burning dry eyes. Could be secondary viral conjunctivitis as patient's daughter is sick. - Given artificial tears - Will monitor progression of symptoms. DVT prophylaxis: Lovenox Disposition: Likely will be here for 1-2 more days as she is only tolerating clear liquids. Needs to be able to advance her diet safely. Pain Evaluation: Adequate Pain Control GI Prophylaxis: Proton Pump Inhibitor VTE Prophylaxis: Sub-Q Enoxaparin VTE Mechanical Devices: Intermittant Pneumatic CD Resuscitation Status: CPR: Attempt Resuscitation Rock Ortega MD Apr 24, 2017 22:38
[2017-04-25] MEDS: oxyCODONE-Acetamin 5-325 mg Tablet PO PRN ×6 (01:33→22:46)
--- NOTE | 2017-04-25 02:11 | NUR ---
Withdrawal Symptom Management Patient A&OX3 and pleasant this evening. CIWA assessment at beginning of shift was 6. Patient complains of 7-8/10 upper abdominal pain. 1 tab percocet seems to provide relief upon reassessment. Withdrawal symptoms seem to be managed well with .5mg Ativan, 25mg librium, as well as the percocet. Tele reports HR SR 72. Patient is currently sleeping and appears comfortable. Will continue to monitor, and continue Q1 hour checks.
[2017-04-25 05:29] VITALS: PULSE 72
[2017-04-25 05:39] LABS: BASOPHILS % (AUTO) 0.3 % (0-3); EOSINOPHILS % (AUTO) 1.7 % (0-5); MONOCYTES % (AUTO) 4.2 % (4-12); Mean Corpuscular Volume 102.6 fL (81-100); NEUTROPHILS % (AUTO) 34.6 % (40-74); Platelet Count 68 bil/L (150-400)
[2017-04-25 06:11] VITALS: BP 132/89; PULSE 75; RESP 16; O2SAT 99
[2017-04-25 06:19] LABS: Magnesium 1.2 mg/dL (1.6-2.6)
--- NOTE | 2017-04-25 06:21 | NUR ---
Critical Lab Value Critical magnesium of 1.2 reported at 0618. Night hospitalist notified and ordered 2mg of Magnesium IV to be given now. Care continues.
[2017-04-25] MEDS ORDERED: Magnesium Sulf 2 Gm/50mL Water 2 GM in IV Premix 1 EACH IV ONE (06:35)
[2017-04-25 08:00] VITALS: PULSE 72
[2017-04-25] MEDS ORDERED: Magnesium Sulf 4 Gm/100 mL H2O 4 GM in IV Premix 1 EACH IV ONE ×2 (08:40→11:50)
[2017-04-25] MEDS: Pantoprazole 40 mg ER24 Tablet PO SCH (09:24)
[2017-04-25] MEDS: Multivit-Miner-Folic Acid-Iron Tablet PO SCH (09:25)
[2017-04-25] MEDS: LORazepam 0.5 mg Tablet PO PRN ×2 (09:42→18:23)
--- NOTE | 2017-04-25 10:32 | PCM.PNSURG ---
Subjective Date of Service: Apr 25, 2017 Date of Service: Apr 25, 2017 Visit Information: Reason for Visit Pancreatitis Date of Admission: Apr 22, 2017 at 01:53 Hospital Day # 4 Subjective: Patient reports continued epigastric and midline lower chest pain that is still present. She has improvement with pain medication however it is still there. She has been feeling some chills and having sweats. She has occasional nausea but no vomiting. She ate some hashbrowns this morning which made the pain worse she was doing okay with soft foods like applesauce, pudding, and fluids. Generally speaking she has an increase in her nausea with any food consumption. She reports some leg numbness and throbbing that has improved some since last night when it started. Postop General: Shortness of Breath (with ambulation) Gastrointestinal: Tolerating Oral Feedings, Passing Flatus Pain Management: PO Postop Activity: Ambulating Independently Objective Vital Sign- Last 8 Hours Date Time Temp Pulse Resp B/P Pulse Ox O2 Delivery O2 Flow Rate FiO2 04/25/17 06:11 36.6 75 16 132/89 99 Room Air 04/25/17 05:29 72 04/24/17 23:50 72 Intake and Output- Last 8 Hour 04/25/17 Cumulative From/Thru 07:00 04/22/17 02:32 - 04/25/17 06:45 Intake Total 1564 ml 70509 ml Output Total 105 ml 9249 ml Balance 1459 ml 3103 ml Intake Oral 200 ml 3650 ml IV Total 1364 ml 8702 ml Output Urine Total 9144 ml Drainage Total 105 ml 105 ml # Voids 3 3 # Bowel Movements 0 General: Alert, Oriented X3, Cooperative, No Acute Distress Neck: Supple Lungs: Clear to Auscultation Heart: Regular Rate/Rhythm Abdomen: Soft, Appropriately tender, Non-distended, Normoactive bowel tones Extremities: Warm, Thigh&Calf Soft/Nontender, No Cord to Palpation Neuro: Grossly Neurologically Intact Catheters: None Result Diagram: 04/25/1751004/25/17510 Assessment & Plan Impression 36-year-old female with past medical history of polysubstance abuse and recent alcohol use presents with epigastric pain and lipase 1014 at [facility] most likely due to acute etoh pancreatitis.. She has elevated lipase; initially in the thousands now downtrending with cessation of alcohol use, administration of IV fluids, and nothing by mouth status. however other causes should be considered including autoimmune, or gallstone pancreatitis. Patient nontender in her right upper quadrant with a non-thickened gallbladder and no evidence of stones or sludge on ultrasound making gallstone pancreatitis less likely. Patient is stable, though her pain is present she is continuing to improve. abdominal u/s- Increased hepatic echogenicity noted likely related to fatty infiltration of the liver but other sources of hepatocellular disease cannot be excluded Problems: Plan Recommendations: 1. Continue soft low residue diet advancing as tolerated. I discussed progressing diet slowly and some good food choices with her. 2. JOSE L (neg) and IgG4 negative,making autoimmune pancreatitis less likely. IgG3 was very mildly elevated. 3. Continue protonix 40mg qday 4. If patient continues to tolerate diet, then ok to d/c home from [facility]. She should follow up with primary care physician in 2 weeks. GI will sign off at this time. Pain Management: per hospitalist team VTE Prophylaxis: Sub-Q Enoxaparin Resuscitation Status: CPR: Attempt Resuscitation copies to: Nima Edwards MD, Erika R DO Apr 25, 2017 07:52
--- NOTE | 2017-04-25 11:22 | NUR ---
NUTRITION FOLLOW-UP: ASSESS: Pt is a 36yo F admitted for pancreatitis. Pt has history of etoh use. She continues to have abdominal pain. Her diet was advanced to soft 04/24. PO has been fair at 25-50%. Pt has noticed some wt loss recently of ~5-10lbs over the past month (~6.5% wt loss x1 month = severe wt loss). PMHX: polysubstance abuse, etoh LABS: Reviewed. K 3.1, Bun 4, armhole sewer .3, Ca 8.4, Mg 1.2, alb 2.4 MEDS: Reviewed. Thiamine, MVI, zofran GI: 0 BM- pt reports constipation- no bowel meds given SKIN: Arvin 20, no major issues. Squaring of shoulders and visible muscle/fat loss CURRENT WTS: 49kg, BMI 19.1kg/m2, admit wt 48.3kg reported ~6.5% wt loss x1 month, IBW 52.3kg DIET ALGORITHM DESIGN ENGINEER: Breakfast: coffee snacks on crackers during day Dinner: microwaveable meals DIET: soft, PO 25-50% EST. NEEDS: pancreatitis, malnutrition Kcals: 1210-1450kcal/day (25-30kcal/kg) Pro: 60-75g/day (1.2-1.5g/kg) NUTRITION DIAGNOSIS: 1.) Severe pro/kcal malnutrition related to alcoholism as evidence by 6.5% wt loss x1 month and PO intake of less than 75% of estimated needs for greater than 1 month, visible muscle/fat loss.--IMPROVING NUTRITION INTERVENTION: 1.) RD discussed on 04/22 with pt about how her current diet is not adequate to meet her kcal/pro needs. Discussed how drinking can make you feel full and leads to not eating enough food. Discussed avoiding high fat and high sugar foods and eating smaller more frequent meals because her body is not use to her eating large amounts at one time. Pt verbalized understanding of this and she reported that she has noticed wt loss and muscle loss and she does not want to lose any more wt or muscle. 2.) Provided handout on pancreatitis diet (low fat) and general healthy diet (04/22) 3.) Added Ensure on L tray per pt preference. MONITOR / EVAL: PO, diet advc, wt, gi, labs, POC, nutrition status. Will continue to monitor per high nutrition risk guidelines
[2017-04-25] MEDS: Potassium Chloride 20 mEq SR Tablet PO SCH ×2 (11:53→19:51)
[2017-04-25] MEDS: chlordiazePOXIDE 25 mg Capsule PO PRN ×2 (13:15→22:46)
[2017-04-25] MEDS: 0.9% NaCl + KCl 20 mEq/L 1,000 ML IV SCH ×2 (15:29→18:23)
[2017-04-25 16:48] VITALS: BP 108/75; PULSE 84; RESP 16; O2SAT 100
--- NOTE | 2017-04-25 19:23 | NUR ---
Rehab/Pain Discussed with pt what her plan upon discharge was, pt voiced interest in continuing her recovery on an outpatient basis. She voiced interest in starting a Suboxone program in place of [facility]. Pt voiced pain level at 6-7/10 with each pain assessment. She experiences enough relief with medication to sleep. Pt pain is bilateral upper abdominal quadrants. She has also complained of some epigastric pain that she states feels like heartburn or acid reflux with eating. Patient offered Pepcid but refused.
[2017-04-25 20:31] VITALS: BP 101/67; PULSE 89; RESP 18; O2SAT 99
[2017-04-25 22:15] VITALS: PULSE 94
[2017-04-26] VITALS (7 sets, daily range): BP systolic 105–132; BP diastolic 69–92; PULSE 73–87; RESP 16–18; O2SAT 98–100
--- NOTE | 2017-04-26 00:04 | PCM.PNMED ---
Subjective Date of Service Apr 25, 2017 Subjective The patient is not feeling well today. She states that her legs hurt this morning and she had very little energy. Her abdominal pain has improved overall. Exam Vital Signs Vital Sign - Last Date Time Temp Pulse Resp B/P Pulse Ox O2 Delivery O2 Flow Rate FiO2 04/25/17 22:15 94 04/25/17 20:31 36.9 18 101/67 99 Room Air Intake and Output 04/24/17 04/24/17 04/25/17 Cumulative From/Thru 15:00 23:00 07:00 04/22/17 02:32 - 04/25/17 06:45 Intake Total 2672 ml 1564 ml 15859 ml Output Total 844 ml 105 ml 9249 ml Balance 1828 ml 1459 ml 3103 ml Intake Oral 950 ml 200 ml 3650 ml IV Total 1722 ml 1364 ml 8702 ml Output Urine Total 844 ml 9144 ml Drainage Total 105 ml 105 ml # Voids 3 3 # Bowel Movements 0 Exam General: Patient is lying supine in no apparent distress. She does not appear to be feeling very well HEENT: Head is atraumatic and normocephalic. Eyes: Pupils are equally round and reactive to light and accommodation. Extraocular muscles are intact. Sclera are white, anicteric. Subconjunctival mucosa is pink. Ears and nose are unremarkable. Oropharynx: There is no mucosal lesions, there is no thrush, there is no pharyngitis. Neck: Is supple, there are no nodes, or masses or tenderness. Chest: Is clear to auscultation and percussion. There are no rales, rhonchi, wheezes or rubs. Heart: Rate, rhythm is regular. There is no murmur, rub or gallop. Abdomen: Good bowel sounds are present. Abdomen is soft, with nonspecific tenderness, no organomegaly or masses were appreciated. Extremities: Are symmetrical and well perfused. There is no edema, there is no cellulitis, no rash. Neurologic: There are no focal neurological deficits. Cranial nerves II through XII are intact. There are no sensory or motor deficits. Psychiatric: Patients mood is calm and shows no sign of agitation. Genital: Deferred Rectal: Deferred Lab and Diagnostics Result Diagram: 04/25/17 0511 04/25/17 0511 Microbiology Nasopharyngeal PCR screen was negative and MRSA nasal screen is pending X-Rays, CTs and MRIs Abdominal CT impression at [place] 04/21/2017 1. Severe hepatics steatosis 2. Small hiatal hernia 3. Thickening of the entire colon probably due to decompression. Colitis is less likely. Chest x-ray impression at [facility] 04/21/2017 1. No acute changes 2. 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 Acute pancreatitis, present on admission, active - The patient has classic presentation abdominal pain with lipase initially in the thousand - This is likely secondary to heavy EtOH abuse. BISAP score =1, low risk mortality. - Advanced to clear liquids 04/22/17. Patient having heartburn with it 04/23, so will wait to advance to full liquids till 04/24. - Patient transitioned to oxycodone PO. Had difficulty with swallowing pill, but is able to tolerate it crushed into jello. - Continue IV fluids but will change NS 150cc/hr. to 0.9 normal saline with 20 mEq of KCl at 100 mL an hour due to borderline low potassium. - Appreciate GI consult and follow-up. - Lipase down to 95. Will repeat lipase again in a.m. EtOH intoxication, present on admission, active - Drinks about 1L every 2 days - Last drink, late evening 04/21/2017 - Librium PO TID PRN. - Added Ativan prn for anxiety - Supplement IV thiamine, started folate and vitamin B12 for 04/24/17 - Consulted case management and criminal justice social worker this patient will need chemical dependency plan prior to discharge. She is open to this and wants help Anion gap metabolic acidosis, present on admission, active - Likely due to a combination of discontinuing alcohol ingestion and lactic acidosis - No secondary acid base disorder given Delta/delta =1 - Continue to monitor, hydrate as above - Lactic acidosis trended to normal - CMP tomorrow AM Severe pro/kcal malnutrition secondary to alcoholism, active - Appreciate nutrition consult. Will advance diet to full liquids when patient able to tolerate clear liquids. - Contacted PT for help with ambulation Transaminitis, present on admission, active - AST/ALT pattern classic for hepatotoxicity due to EtOH - Confirmatory, significant steatosis shown on CT abdomen - Hepatitis B and C, HIV and JOSE L negative Dyspepsia, present on admission, active - Small hiatal hernia demonstrated on CT abdomen - Switched famotidine to protonix 40 mg PO daily per GI recommendation Hypokalemia - We will replace Hypomagnesemia, present on admission, persistent is quite profound again today - We will continue to replenish Dry Eyes, active Patient mentions having red, burning dry eyes. Could be secondary viral conjunctivitis as patient's daughter is sick. - Given artificial tears - Will monitor progression of symptoms. DVT prophylaxis: Lovenox Disposition: Likely will be here for 1-2 more days as she is only tolerating clear liquids. Needs to be able to advance her diet safely. Also, patient has profound hypomagnesemia and hypokalemia that needs to be corrected. Dr. Rubi Mondragon will be following in a.m. Pain Evaluation: Adequate Pain Control GI Prophylaxis: Proton Pump Inhibitor VTE Prophylaxis: Sub-Q Enoxaparin VTE Mechanical Devices: Intermittant Pneumatic CD Resuscitation Status: CPR: Attempt Resuscitation Rock Ortega MD Apr 26, 2017 00:04
[2017-04-26] MEDS: 0.9% NaCl + KCl 20 mEq/L 1,000 ML IV SCH ×3 (01:34→22:59)
[2017-04-26] MEDS: LORazepam 0.5 mg Tablet PO PRN ×3 (06:14→20:35)
[2017-04-26] MEDS: oxyCODONE-Acetamin 5-325 mg Tablet PO PRN ×4 (06:15→20:35)
--- NOTE | 2017-04-26 06:28 | NUR ---
NOC PT alert and oriented. Able to ambulate to BR independently. Gait is steady. PT had one episode of incontinence as pt reports "I was sleeping." PT requesting ativan and librium when available. CIWA less than 10. VS WNL. Afebrile. Pain improving and remains around diaphragm area and epigastric. Percocet provides good relief. PT continues to remain nauseous. BS present. +flatus reported. PT in NSR on tele. PT eager to speak with social media manager today about possible resources for suboxone treatment upon d/c. Will CTM.
[2017-04-26 06:50] LABS: BASOPHILS % (AUTO) 0.4 % (0-3); EOSINOPHILS % (AUTO) 1.1 % (0-5); MONOCYTES % (AUTO) 6.7 % (4-12); Mean Corpuscular Hemoglobin 33.7 pg (27.0-35.0); Mean Corpuscular Volume 103.8 fL (81-100); NEUTROPHILS % (AUTO) 30.3 % (40-74); Platelet Count 86 bil/L (150-400)
[2017-04-26 07:01] LABS: Magnesium 1.8 mg/dL (1.6-2.6)
--- NOTE | 2017-04-26 08:17 | PCM.PNSURG ---
Subjective Date of Service: Apr 26, 2017 Date of Service: Apr 26, 2017 Visit Information: Subjective: Pt report abdominal pain improved from yesterday. 05/05. Pt tolerated chicken noodle soup for lunch and dinner without difficulty. Would recommend advance diet. Postop General: No Complaints Objective Vital Sign- Last 8 Hours Date Time Temp Pulse Resp B/P Pulse Ox O2 Delivery O2 Flow Rate FiO2 04/26/17 05:54 84 04/26/17 05:28 36.8 80 16 132/92 98 Room Air 04/26/17 00:36 36.8 79 16 110/76 99 Intake and Output- Last 8 Hour 04/26/17 Cumulative From/Thru 07:00 04/22/17 02:32 - 04/26/17 06:24 Intake Total 1618 ml 19297 ml Output Total 9249 ml Balance 1618 ml 5161 ml Intake Oral 536 ml 4626 ml IV Total 1082 ml 9784 ml Output Urine Total 9144 ml Drainage Total 105 ml # Voids 2 8 # Bowel Movements 0 General: Oriented X3 Neck: Supple Lungs: Clear to Auscultation Heart: Exam Unremarkable Abdomen: Benign, Soft, Appropriately tender, Non-distended, Normoactive bowel tones Extremities: Distal Pulses Palpable Result Diagram: 04/26/1752004/26/17520 Assessment & Plan Impression 36-year-old female with past medical history of polysubstance abuse and recent alcohol use presents with epigastric pain and lipase 1014 at osh most likely due to acute etoh pancreatitis.. She has elevated lipase; initially in the thousands now downtrending with cessation of alcohol use, administration of IV fluids, and nothing by mouth status. however other causes should be considered including autoimmune, or gallstone pancreatitis. Patient nontender in her right upper quadrant with a non-thickened gallbladder and no evidence of stones or sludge on ultrasound making gallstone pancreatitis less likely. Patient is stable, though her pain is present she is continuing to improve. Pt epigastric discomfort most likely from GERD. Pt on protonix and states it does help with her abdominal pain. abdominal u/s- Increased hepatic echogenicity noted likely related to fatty infiltration of the liver but other sources of hepatocellular disease cannot be excluded Recommendations: 1. Continue soft low residue diet. advancing as tolerated per hospitalist team 2. JOSE L (neg) and IgG4 negative 3. Continue protonix 40mg qday. 4. If patient continues to tolerate soft, low residue diet, then ok to d/c home from [facility]. She should follow up with primary care physician in 2 weeks. Problems: VTE Prophylaxis: Sub-Q Enoxaparin Resuscitation Status: CPR: Attempt Resuscitation Nima Edwards MD Apr 26, 2017 08:17
[2017-04-26] MEDS: Pantoprazole 40 mg ER24 Tablet PO SCH (08:46)
[2017-04-26] MEDS: Potassium Chloride 20 mEq SR Tablet PO SCH (08:46)
[2017-04-26] MEDS: Multivit-Miner-Folic Acid-Iron Tablet PO SCH (08:46)
[2017-04-26] MEDS: Artificial Tears 15 mL Ophthalmic Solution BOTH_EYES PRN ×2 (08:49→20:35)
--- NOTE | 2017-04-26 09:08 | PCM.PNMED ---
Subjective Date of Service Apr 26, 2017 Subjective Continues to feel unwell, still some pain although it is improving, feels weak but is able to ambulate without difficulty. Anxious to talk with social media editor and develop chemical dependency plan prior to discharge. Exam Vital Signs Vital Sign - Last Date Time Temp Pulse Resp B/P Pulse Ox O2 Delivery O2 Flow Rate FiO2 04/26/17 08:27 87 04/26/17 05:28 36.8 16 132/92 98 Room Air Intake and Output 04/25/17 04/25/17 04/26/17 Cumulative From/Thru 15:00 23:00 07:00 04/22/17 02:32 - 04/26/17 06:24 Intake Total 440 ml 1618 ml 53527 ml Output Total 9249 ml Balance 440 ml 1618 ml 5161 ml Intake Oral 440 ml 536 ml 4626 ml IV Total 1082 ml 9784 ml Output Urine Total 9144 ml Drainage Total 105 ml # Voids 3 2 8 # Bowel Movements 0 Exam General: Alert and oriented, no acute distress Heart: Regular Lungs: Clear Abdomen: Soft, non-tender Extremities: No pedal edema IVs and Medications Medications Reviewed: Medications were reviewed in detail Lab and Diagnostics Result Diagram: 04/26/17 0521 04/26/17 0521 Microbiology Nasopharyngeal PCR screen was negative and MRSA nasal screen is pending X-Rays, CTs and MRIs Abdominal CT impression at [place] 04/21/2017 1. Severe hepatics steatosis 2. Small hiatal hernia 3. Thickening of the entire colon probably due to decompression. Colitis is less likely. Chest x-ray impression at [place] 04/21/2017 1. No acute changes 2. 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 with a medical history significant for polysubstance abuse, recently discharged from methadone clinic after 10 years, started to drink (ETOH) heavily instead, admitted for acute pancreatitis and into the ICU for EtOH intoxication and subsequently possible withdrawal. Acute pancreatitis, present on admission, active - The patient has classic presentation abdominal pain with lipase initially in the thousand - This is likely secondary to heavy EtOH abuse. BISAP score =1, low risk mortality. - Advanced to clear liquids 04/22/17. Currently on soft diet - has tolerated chicken noodle soup yesterday and potatoes this am - Patient transitioned to oxycodone PO. Had difficulty with swallowing pill, but is able to tolerate it crushed into jello. - Continue IV fluids, currently NS with 20 mEq of KCl at 100 mL an hour due to borderline low potassium (yesterday). - Appreciate GI consult and follow-up. - Lipase down to 95 April 25 am EtOH intoxication, present on admission, active - Drinks about 1L every 2 days - Last drink, late evening 04/21/2017 - Librium PO TID PRN (2 doses yesterday), will DC today since has Ativan for anxiety - Ativan prn for anxiety was added (took twice yesterday and once this am) - Supplement IV thiamine, started folate and vitamin B12 04/24/17 - Consulted case management and social worker palliative care this patient will need chemical dependency plan prior to discharge. She is open to this and wants help Anion gap metabolic acidosis, present on admission, active - Likely due to a combination of discontinuing alcohol ingestion and lactic acidosis - No secondary acid base disorder given Delta/delta =1 - monitored and hydrated as above - Lactic acidosis trended to normal Severe pro/kcal malnutrition secondary to alcoholism, active - Appreciate nutrition consult. Advance diet as tolerated - Contacted PT for help with ambulation Transaminitis, present on admission, active - AST/ALT pattern classic for hepatotoxicity due to EtOH - Confirmatory, significant steatosis shown on CT abdomen - Hepatitis B and C, HIV and JOSE L negative Dyspepsia, present on admission, active - Small hiatal hernia demonstrated on CT abdomen - Switched famotidine to protonix 40 mg PO daily per GI recommendation Hypokalemia resolved - Will stop oral replacement, continue some in IVF for now Hypomagnesemia, present on admission, resolved - replenished with IV doses Dry Eyes, active Patient mentions having red, burning dry eyes. Could be secondary viral conjunctivitis as patient's daughter is sick. - Given artificial tears - Will monitor progression of symptoms. DVT prophylaxis: Lovenox Disposition: Hope to discharge tomorrow depending on how she tolerates diet, also needs chemical dependency plan. GI Prophylaxis: Proton Pump Inhibitor VTE Prophylaxis: Sub-Q Enoxaparin VTE Mechanical Devices: Intermittant Pneumatic CD Resuscitation Status: CPR: Attempt Resuscitation Rubi Mondragon MD Apr 26, 2017 09:08 Rubi Mondragon MD Apr 26, 2017 09:08
[2017-04-26] MEDS: chlordiazePOXIDE 25 mg Capsule PO PRN (09:24)
--- NOTE | 2017-04-26 11:06 | NUR ---
GI Complains of upper abd pain 6/10. Also complains of slight nausea. Tolerates potatoes, applesauce and oral meds.
--- NOTE | 2017-04-26 12:10 | NUR ---
Social Work: Screening/Readiness for Discharge D: EMR reviewed. Pt is a 36 y/o female admitted for pancreatitis per H&P. SW met with pt and pt's mother at bedside to conduct initial screening. Pt was alert and oriented x3. SW explained role and wrote phone number on white board. Pt's insurance is [employer]. Pt has been seen by [facility] and completed Medicaid application (pending approval and INS# as of 04/25). PCP is Handy Rocha MD in [place]. Pt gave verbal consent to contact mother, Kalani Nichols ([phone]) for discharge planning. SW provided DPOA/advanced directive ppw and encouraged pt to provide a copy to the hospital once complete. Pt lives at home with her 3 children in [place]. Pt and mother state that pt's children are currently living with their biological father while pt is receiving care at the hospital. Pt's mother confirmed she will provide pt transport via POV at time of discharge. SW received MD order to consult pt regarding CD. Pt was agreeable to meet with CDP to coordinate rehabilitation services for ETOH. Pt signed ALETHA with mother in room. Pt and mother actively seeking resources and are agreeable to CDP services, including inpt rehabilitation. SW called and left voicemail with CDP to notify CDP of pt's request for services and completed ALETHA. A: Pt for whom CDP has been recommended. Pt who is independent at baseline. P: Pt's mother to transport pt via POV when pt is medically stable. Pt has signed ALETHA for CDP. CDP to see pt today and report to SW regarding potential discharge needs. Per MD, pt likely to discharge tomorrow. Zahira Mckay MSW
[2017-04-27] MEDS: oxyCODONE-Acetamin 5-325 mg Tablet PO PRN ×3 (04:44→14:07)
--- NOTE | 2017-04-27 05:46 | NUR ---
Pain Pt reported "pancreatitis" pain at HS at 7/10 and requested Ativan in addition to Percocet; medications administered with relief upon reassessment. One additional Percocet administered this AM at approx. 0500 for 8/10 generalized pain; pt reported pain had reduced to 5/10 on reassessment. CIWA scores 4-5 this shift. VSS. No telemetry. Pt able to rest between interventions. Reports mild nausea this AM.
[2017-04-27] MEDS: LORazepam 0.5 mg Tablet PO PRN ×2 (06:22→14:06)
[2017-04-27 06:28] VITALS: BP 116/83; PULSE 66; RESP 16; O2SAT 99
[2017-04-27] MEDS: Pantoprazole 40 mg ER24 Tablet PO SCH (07:59)
[2017-04-27] MEDS: Multivit-Miner-Folic Acid-Iron Tablet PO SCH (07:59)
--- NOTE | 2017-04-27 08:12 | PCM.PNSURG ---
Subjective Date of Service: Apr 27, 2017 Date of Service: Apr 27, 2017 Visit Information: Subjective: abdominal pain same as yesterday 05/05. pt ate pork for dinner yesterday and tolerated well. Postop General: No Complaints Objective Vital Sign- Last 8 Hours Date Time Temp Pulse Resp B/P Pulse Ox O2 Delivery O2 Flow Rate FiO2 04/27/17 06:28 36.4 66 16 116/83 99 Room Air Intake and Output- Last 8 Hour 04/27/17 Cumulative From/Thru 07:00 04/22/17 02:32 - 04/27/17 06:49 Intake Total 1524 ml 00182 ml Output Total 9249 ml Balance 1524 ml 8112 ml Intake Oral 440 ml 5426 ml IV Total 1084 ml 83905 ml Output Urine Total 9144 ml Drainage Total 105 ml # Voids 5 17 # Bowel Movements 0 General: Oriented X3 Neck: Supple Lungs: Clear to Auscultation Heart: Exam Unremarkable Abdomen: Benign, Soft, Appropriately tender, Non-distended, Normoactive bowel tones Extremities: Distal Pulses Palpable Result Diagram: 04/26/1752004/26/17 0521 Assessment & Plan Impression 36-year-old female with past medical history of polysubstance abuse and recent alcohol use presents with epigastric pain and lipase 1014 at osh most likely due to acute etoh pancreatitis.. She has elevated lipase; initially in the thousands now downtrending with cessation of alcohol use, administration of IV fluids, and nothing by mouth status. however other causes should be considered including autoimmune, or gallstone pancreatitis. Patient nontender in her right upper quadrant with a non-thickened gallbladder and no evidence of stones or sludge on ultrasound making gallstone pancreatitis less likely. Patient is stable, though her pain is present she is continuing to improve. Pt epigastric discomfort most likely from GERD. Pt on protonix and states it does help with her abdominal pain. abdominal u/s- Increased hepatic echogenicity noted likely related to fatty infiltration of the liver but other sources of hepatocellular disease cannot be excluded 04/27/17- pt ate pork for dinner and tolerated well. Recommendations: 1. Continue soft low residue diet. 2. JOSE L (neg) and IgG4 negative 3. increase protonix 40mg bid. 4. ok to d/c home from [facility] today. She should follow up with primary care physician in 2 weeks. Problems: VTE Prophylaxis: Sub-Q Enoxaparin Resuscitation Status: CPR: Attempt Resuscitation Nima Edwards MD Apr 27, 2017 08:12
--- NOTE | 2017-04-27 09:38 | DRSVH ---
PROCEDURE: X-RAY CHEST, TWO VIEWS ([id number]) INDICATIONS: chest pain TECHNIQUE: 2 views of the chest were acquired. COMPARISON: Outside Film, CR, XR CHEST 2VW, 04/21/2017, 18:07. FINDINGS: Surgical changes and devices: None. Lungs and pleura: No pleural effusions on the right or pneumothorax bilaterally but there may be a s light effusion on the left posteriorly seen on the lateral view. Lungs are abnormal with a left lowe r lobe band of abnormal radiodensity behind the heart and laterally.. Mediastinum: Mediastinal contours are normal. Heart size is normal. Bones and chest wall: No suspicious bony abnormalities. Soft tissues appear unremarkable. IMPRESSION: Lateral left lung base alveolar consolidation, suspicious for pneumonia. This may be pos itioned within the lingular segment left upper lobe. On the lateral view there is also posterior lef t lung base pleural blunting, potentially a small effusion in that area Dictated by: Juancho Moreira M.D. on 04/27/2017 at 9:35 Approved by: Juancho Moreira M.D. on 04/27/2017 at 9:36
[2017-04-27] MEDS: 0.9% NaCl + KCl 20 mEq/L 1,000 ML IV SCH (10:40)
[2017-04-27 11:38] VITALS: BP 111/79; PULSE 75; RESP 16; O2SAT 98
--- NOTE | 2017-04-27 13:30 | PCM.DIMED ---
Discharge Instructions Date of Service Apr 27, 2017 Dates of Hospitalization Apr 22, 2017 at 01:53 Discharge Diagnosis Discharge Diagnosis Acute Pancreatitis due to alcohol Diet Discharge Diet: Other (soft, low residue) Activity Discharge Activity: No restrictions Patient Instructions Follow-up with PCP in: Other (1-3 days) Rubi Mondragon MD Apr 27, 2017 13:30
[2017-04-27] MEDS ORDERED: LORA-302 PO (13:33)
[2017-04-27] MEDS ORDERED: OXYC1TAB24 PO (13:33)
[2017-04-27] MEDS ORDERED: PANT40TA3 PO (13:33)
--- NOTE | 2017-04-27 13:40 | PCM.DC.MED ---
Discharge Summary Date of Service Apr 27, 2017 Dates of Hospitalization Date of Hospital Admission Apr 22, 2017 at 01:53 Date of Discharge: Apr 27, 2017 Providers: Admitting Physician: Rock Ortega MD Primary Care Physician: Dion Attending Physician: Rock Ortega MD Diagnosis at Time of Discharge Diagnosis at Time of Discharge Acute Pancreatitis due to alcohol Procedures XRay, CTs & MRIs Abdominal CT impression at [facility] 04/21/2017 1. Severe hepatics steatosis 2. Small hiatal hernia 3. Thickening of the entire colon probably due to decompression. Colitis is less likely. Chest x-ray impression at [facility] 04/21/2017 1. No acute changes 2. 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 She had sudden onset abdominal pain that has worsened over the last 2 days until it got to the point that she couldn't walk it hurt so bad. She describes the pain as sharp at times and a major pressure in her epigastric area. Pain radiates to back. It is currently rated at 8/10, 10/10 at worst. She has had some nausea and vomitting but no hematemesis or melena. She has had some fever and chills. She is constipated without diarrhea. She does not take medications at home. She has been drinking"not much" recently, less than a pint of vodka daily. Hospital Course Acute pancreatitis, present on admission, active - The patient has classic presentation abdominal pain with lipase initially in the thousand - Lipase down to 95 April 25 am - This is likely secondary to heavy EtOH abuse. BISAP score =1, low risk mortality. - Advanced to clear liquids 04/22/17 and subsequently to low residue, soft diet which she is tolerating well - Patient transitioned to oxycodone PO which controls pain (says she gets nausea with tramadol) - IV fluids through most of hospital stay, NS with 20 mEq of KCl at 100 mL an hour due to borderline low potassium - Appreciate GI consult and follow-up, their impression and recommendations 04/27: 36-year-old female with past medical history of polysubstance abuse and recent alcohol use presents with epigastric pain and lipase 1014 at osh most likely due to acute etoh pancreatitis.. She has elevated lipase; initially in the thousands now downtrending with cessation of alcohol use, administration of IV fluids, and nothing by mouth status. however other causes should be considered including autoimmune, or gallstone pancreatitis. Patient nontender in her right upper quadrant with a non-thickened gallbladder and no evidence of stones or sludge on ultrasound making gallstone pancreatitis less likely. Patient is stable, though her pain is present she is continuing to improve. Pt epigastric discomfort most likely from GERD. Pt on protonix and states it does help with her abdominal pain. abdominal u/s- Increased hepatic echogenicity noted likely related to fatty infiltration of the liver but other sources of hepatocellular disease cannot be excluded Recommendations: 1. Continue soft low residue diet. 2. JOSE L (neg) and IgG4 negative 3. increase protonix 40mg bid. Probable GERD (see above) Dyspepsia, present on admission - Small hiatal hernia demonstrated on CT abdomen - Switched famotidine to protonix 40 mg PO daily per GI recommendation - per GI Protonix increased to BID CXR done on day of discharge suspicious for pneumonia (done because of persistent retrosternal pain although it could be due to GERD) - Will give 10 day course of Levaquin EtOH intoxication, present on admission, active - Drinks about 1L every 2 days - Last drink, late evening 04/21/2017 - Librium PO TID PRN, DC'd April 26 since Ativan for anxiety had been started - Ativan prn for anxiety was added April 25. requests rx for home. Discussed addiction potential. 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 She is open to this and wants help. Arrangements are being made for inpatient treatment, possibly later this week, and she has a number to call for suboxone therapy (previously on methadone for 10 years and then started the heavy alcohol intake when she went off of it) Anion gap metabolic acidosis, present on admission, active - Likely due to a combination of discontinuing alcohol ingestion and lactic acidosis - No secondary acid base disorder given Delta/delta =1 - monitored and hydrated as above - Lactic acidosis trended to normal Severe pro/kcal malnutrition secondary to alcoholism, active - Appreciate nutrition consult. Advance diet as tolerated - Contacted PT for help with ambulation Transaminitis, present on admission, active - AST/ALT pattern classic for hepatotoxicity due to EtOH - Confirmatory, significant steatosis shown on CT abdomen - Hepatitis B and C, HIV and JOSE L negative Hypokalemia resolved - Will stop oral replacement, continue some in IVF for now Hypomagnesemia, present on admission, resolved - replenished with IV doses Dry Eyes, active Patient mentions having red, burning dry eyes. Could be secondary viral conjunctivitis as patient's daughter is sick. - Given artificial tears - Will monitor progression of symptoms. DVT prophylaxis: Lovenox Disposition: Hope to discharge tomorrow depending on how she tolerates diet, also needs chemical dependency plan. Exam Vital Signs (Last) Date Time Temp Pulse Resp B/P Pulse Ox O2 Delivery O2 Flow Rate FiO2 04/27/17 11:38 36.5 75 16 111/79 98 Room Air Exam General: Alert and oriented, no acute distress Heart: Regular Lungs: Clear Abdomen: Soft, mild epig tender Extremities: No pedal edema Test 04/22/17 02:40 04/22/17 08:38 04/23/17 02:45 04/24/17 11:31 Hemoglobin A1c 4.8% (4.8-5.6) Prealbumin 13mg/dL (20-40) Lactic Acid Level 0.9mmol/L (0.4-2.0) Immunoglobulin G Total 713mg/dL (700-1600) Immunoglobulin G1 418mg/dL (248-810) Immunoglobulin G2 185mg/dL (130-555) Immunoglobulin G3 104mg/dL (15-102) Immunoglobulin G4 3mg/dL (2-96) Anti-Nuclear Antibody Screen Negative (Negative) Hepatitis A IgM Antibody Negative (Negative) Hepatitis B Surface Antigen Negative (Negative) Hepatitis B Core IgM Antibody Negative (Negative) Hepatitis C Antibody <0.1s/co ratio (0.0-0.9) Hepatitis C Comment Comment (.) HIV (1&2) Ag and Ab, 4th Generation Non reactive (Non Reactive) Lipase 95U/L (13-60) Prothrombin Time 11.2sec (8.1-12.5) Prothromb Time International Ratio 1.05ratio Test 04/26/17 05:21 White Blood Count 2.8th/mm3 (3.8-10.1) Red Blood Count 3.15mil/mm3 (3.90-5.20) Hemoglobin 10.6g/dL (12.0-15.6) Hematocrit 32.7% (35.0-46.0) Mean Corpuscular Volume 103.8fL (81-100) Mean Corpuscular Hemoglobin 33.7pg (27.0-35.0) Mean Corpuscular Hemoglobin Concent 32.4% (32.0-37.0) Red Cell Distribution Width 13.0% (12.3-15.4) Platelet Count 86bil/L (150-400) Neutrophils (%) (Auto) 30.3% (40-74) Lymphocytes (%) (Auto) 61.5% (14-46) Monocytes (%) (Auto) 6.7% (4-12) Eosinophils (%) (Auto) 1.1% (0-5) Basophils (%) (Auto) 0.4% (0-3) Sodium Level 142mEq/L (134-144) Potassium Level 3.7mEq/L (3.5-5.2) Chloride Level 110mEq/L (97-108) Carbon Dioxide Level 23mmol/L (18-29) Blood Urea Nitrogen 4mg/dL (6-20) Creatinine 0.32mg/dL (0.57-1.00) Estimat Glomerular Filtration Rate 337mL/min (>59) Glucose Level 84mg/dL (60-99) Calcium Level 8.6mg/dL (8.5-10.1) Magnesium Level 1.8mg/dL (1.6-2.6) Total Bilirubin 0.2mg/dL (0.0-1.2) Aspartate Amino Transf (AST/SGOT) 62U/L (0-50) Alanine Aminotransferase (ALT/SGPT) 29U/L (0-32) Alkaline Phosphatase 61U/L (25-150) Total Protein 4.7g/dL (6.4-8.4) Albumin 2.5g/dL (3.4-5.0) Microbiology Results Nasopharyngeal PCR screen was negative and MRSA nasal screen is pending Discharge Medications Discharge Medications Pantoprazole DR (Pantoprazole DR) 40 Mg Tablet.dr 40 MG PO BIDAC Prescribed by: CHRISTIAN GALAN MD As needed Lorazepam (Ativan) 0.5 Mg Tablet 0.5 MG PO TID PRN PRN anxiety Prescribed by: CHRISTIAN GALAN MD oxyCODONE-Acetaminophen 5-325 mg (oxyCODONE-Acetaminophen 5-325 mg) 1 Each Tablet 1 TAB PO Q4HWA PRN PRN For Pain Prescribed by: CHRISTIAN GALAN MD Followup Plan Discharge Diet: Other (soft, low residue) Discharge Activity: No restrictions Follow-up with PCP in: Other (1-3 days) Christian Galan MD Apr 27, 2017 13:40
[2017-04-27] MEDS ORDERED: LEVO500T16 PO (13:43)
--- NOTE | 2017-04-27 14:49 | NUR ---
Social Work: Discharge/CDP D: EMR reviewed. Pt is on day 5 of hospitalization. SW received MD order to discuss CDP consult with pt. Pt agreed to see CDP and signed ALETHA. CDP saw pt and provided resources to coordinate inpt services. Pt and mother educated on inpt treatment process. Pt to call [facility] to coordinate possible suboxone. Pt to call [facility] to schedule phone intake. Pt likely to be placed in inpt rehab for ETOH in 3-14 days. [facility] will follow pt to help pt coordinate inpt rehab. Pt states children will remain with their biological father. Pt's mother to transport pt home via POV today. CARLOS screened pt's EMR and worked with medical team in AM multi-disciplinary rounds to determine pt does not have any SW discharge needs at this time. SW does not anticipate any needs at time of discharge but will continue to follow if needs arise. A: Pt for whom CDP has been recommended and pt is willing to participate in inpt treatment process. P: [facility] to follow pt for inpt rehab services for ETOH. Pt's mother to transport pt home via POV today. SW confirmed inpt treatment process with pt and pt showed SW her list of steps to complete in the coming week in order to start intake for inpt rehab. Pt and mother are working together to follow-up with CDP process for inpt treatment. CARLOS screened pt's EMR and worked with medical team in AM multi-disciplinary rounds to determine pt does not have any SW discharge needs at this time. SW does not anticipate any needs at time of discharge but will continue to follow if needs arise. KAITY Aceves
--- NOTE | 2017-04-27 15:03 | NUR ---
Discharge To home with mother via private vehicle at 15:00. Steady transfer to wheelchair and vehicle. IV discontinued intact. Pt and mother express understanding of all discharge instructions and care notes, including followup and meds. Rx given. All personal belongings sent with pt.
[2017-04-27] MEDS ORDERED: Pantoprazole 40 mg ER24 Tablet PO SCH (16:30)
== END 2017-04-27 14:55 | disposition home or self-care (01) | DRG 438 ==
LOC: PCC 01:53 → CCU 02:18 → PCC 10:45 → OSC 04-23 16:31
PROVIDERS: ADMIT Internal Medicine Infectious Disease; ATTEND Internal Medicine Infectious Disease
PROC: 4A033R1 Measurement of Arterial Saturation, Peripheral, Percutaneous Approach (ICD-10-PCS; principal; 2017-04-22)
DX: K85.20 Alcohol induced acute pancreatitis without necrosis or infection (principal); E43 Unspecified severe protein-calorie malnutrition; F10.239 Alcohol dependence with withdrawal, unspecified; Z68.1 Body mass index [BMI] 19.9 or less, adult; E83.42 Hypomagnesemia; R74.0 Nonspecific elevation of levels of transaminase and lactic acid dehydrogenase [LDH]; F12.90 Cannabis use, unspecified, uncomplicated; K59.00 Constipation, unspecified; E87.6 Hypokalemia; B30.9 Viral conjunctivitis, unspecified